=== PATIENT | male | born 1985 | race African-American/Black ===

== ENCOUNTER 2017-01-21 10:22 | Inpatient (IN) | payer MEDICARE, MEDICAID ==
[~2017-01-21] VITALS: Ht 177.8 cm; Wt 95.3 kg
[2017-01-21] MEDS ORDERED: SERT100T PO (10:38)
[2017-01-21] MEDS ORDERED: HYDR-551 PO (10:38)
[2017-01-21] MEDS ORDERED: DIPH50CA37 PO (10:38)
[2017-01-21] MEDS ORDERED: ALBU18HF2 IH (10:38)
[2017-01-21] MEDS ORDERED: TRIM100T PO (10:38)
--- NOTE | 2017-01-21 10:51 | NUR ---
Dr Correa at the bedside for eval and exam.
--- NOTE | 2017-01-21 11:09 | NUR ---
Pt provided father's number, Kris [phone].
--- NOTE | 2017-01-21 11:10 | NUR ---
Pt provided father's phone number. EMELY HORNE called pt's father twice and hung up on, twice. And when ask pt to call his father and speak, pt refused and stated, "I don"t feel like it."
--- NOTE | 2017-01-21 11:16 | NUR ---
Pt is discharge but pt refuses to leave.
--- NOTE | 2017-01-21 11:20 | NUR ---
Pt refuses the leave, security called. but pt is not cooperative and states I don't want to leave.
--- NOTE | 2017-01-21 11:24 | NUR ---
Per security [employer] was called.
--- NOTE | 2017-01-21 12:25 | NUR ---
Patient is resting comfortably in bed with eyes closed, NAD noted. Awaiting [employer] arrival.
--- NOTE | 2017-01-21 12:40 | NUR ---
Pt's primary MD ( LEE ANN) called to notify ER MD that pt is here for medical/psych eval.
[2017-01-21 12:58] LABS: BASOPHILS % (AUTO) 0.6 % (0.0-2.0); EOSINOPHILS # (AUTO) 0.2 K/uL (0.0-0.7); EOSINOPHILS % (AUTO) 4.2 % (0.0-7.0); HEMATOCRIT 38.7 % (40-50); LYMPHOCYTES # (AUTO) 1.7 K/UL (0.8-4.8); LYMPHOCYTES % (AUTO) 34.2 % (20.5-51.5); MEAN CORPUSCULAR HEMOGLOBIN 28.1 UUG (27.0-31.0); MEAN CORPUSCULAR HGB CONC 34 g/dL (32.0-37.0); MONOCYTES # (AUTO) 0.7 K/UL (0.1-1.30); MONOCYTES % (AUTO) 13.7 % (0.0-11.0); NEUTROPHILS # (AUTO) 2.4 K/UL (1.8-8.9); NEUTROPHILS % (AUTO) 47.3 % (38.5-71.5); PLATELET COUNT (AUTO) 251 K/UL (150-450); RED BLOOD CELL COUNT(AUTO) 4.61 MIL/UL (4.7-6.1)
--- NOTE | 2017-01-21 13:00 | NUR ---
Provided lunch, pt ate 100% of tray. No c/o pain.
[2017-01-21 13:05] LABS: CARBON DIOXIDE 29 mmol/L (21-32); CHLORIDE 108 mmol/L (98-107); CREATININE 0.9 mg/dL (0.6-1.3); GLUCOSE 104 mg/dL (74-106); POTASSIUM 4.1 mmol/L (3.5-5.1); UREA NITROGEN, BLOOD 10 mg/dL (7-18)
[2017-01-21 13:10] LABS: *BILIRUBIN,URIN NEGATIVE (NEGATIVE); *BLOOD, URINE 1+ (NEGATIVE); *CLARITY,URINE CLEAR (CLEAR); *COLOR,URINE YELLOW (YELLOW); *KETONES,URINE NEGATIVE (NEGATIVE); *PROTEIN,URINE NEGATIVE (NEGATIVE); *UROBILINOGEN,URINE 0.2 E.U./dl (NORMAL); LEUKOCYTE ESTERASE ,URINE NEGATIVE (NEGATIVE); NITRITE, URINE NEGATIVE (NEGATIVE); UGLUCOSE NEGATIVE (NEGATIVE)
[2017-01-21 13:11] LABS: ETHANOL < 3 MG/DL (0-0)
[2017-01-21 13:12] LABS: *AMPHETAMINE, URINE NEGATIVE (NEGATIVE); *BARBITURATE, URINE NEGATIVE (NEGATIVE); *CANNABINOID, URINE POSITIVE (NEGATIVE); *COCCAINE, URINE NEGATIVE (NEGATIVE); *OPIATE, URINE NEGATIVE (NEGATIVE); *PHENCYCLIDINE SCREEN,URINE NEGATIVE (NEGATIVE)
[2017-01-21 13:18] LABS: THYROID STIMULATING HORMONE 1.319 mIU/mL (0.358-3.740)
[2017-01-21 13:20] LABS: ALANINE AMINOTRANSFERASE 44 U/L (16-63); ALKALINE PHOSPHATASE 73 U/L (50-136); ASPARTATE AMINOTRANSFERASE 28 U/L (15-37); BILIRUBIN,DIRECT 0.1 mg/dL (0.0-0.2); BILIRUBIN,TOTAL 0.2 mg/dL (0.2-1.0); TOTAL PROTEIN, SERUM 6.6 g/dL (6.4-8.2)
[2017-01-21 13:22] LABS: BACTERIA,URINE FEW /HPF (NONE SEEN); SQUAMOUS EPITHELIAL CELL,UR FEW /HPF (NONE SEEN); WBC,URINE NONE SEEN /HPF (0-3)
[2017-01-21] MEDS ORDERED: IV 1/2NS 1000 ML 1,000 ML IV ONE (13:45)
--- NOTE | 2017-01-21 14:20 | NUR ---
[facility]SA collected and sent to lab, belonging list completed.
[2017-01-21] MEDS ORDERED: IV 1/2NS 1000 ML 1,000 ML IV PRN (15:00)
[2017-01-21] MEDS ORDERED: HYDROMORPHONE 1 MG/1 ML DISP.SYRIN IV PRN (15:00)
[2017-01-21] MEDS ORDERED: ONDANSETRON 4 MG/2 ML VIAL IV PRN (15:00)
[2017-01-21] MEDS ORDERED: LORAZEPAM 2 MG/1 ML VIAL IV PRN (15:00)
[2017-01-21] MEDS ORDERED: ALBUTEROL SULFATE 2.5 MG/3 ML NEBU NEB PRN (15:00)
[2017-01-21] MEDS ORDERED: ZOLPIDEM 5 MG TABLET PO PRN (15:00)
[2017-01-21] MEDS ORDERED: ACETAMINOPHEN 325 MG TABLET PO PRN (15:00)
[2017-01-21 15:43] VITALS: BP 123/79
--- NOTE | 2017-01-21 15:50 | NUR ---
PATIENT STATES HE NEEDS TO LEAVE TODAY AND THAT HE IS NOT SPENDING THE NIGHT IN THE HOSPITAL. DR. NANCE NOTIFIED.
--- NOTE | 2017-01-21 16:00 | NUR ---
PATIENT PACING OUTSIDE THE ROOM. INCREASE AGITATION NOTED. STATES HE IS LEAVING NOW. TEACHING DONE REGARDING PATIENT'S DX RISKS EXPLAINED AND PATIENT VOICED UNDERSTANDING.
--- NOTE | 2017-01-21 16:13 | NUR ---
PATIENT LEFT AMA. STATED, " I AM NOT SPENDING THE NIGHT HERE!" IV REMOVED, PRESSURE APPLIED AND HEMOSTASIS ACHIEVED. REFUSED TO SIGN AMA PAPER WORK. DR. NANCE NOTIFIED. PATIENT ACCOMPANIED OUTSIDE THE HOSPITAL BY SECURITY.
[2017-01-21] MEDS ORDERED: DOCUSATE SODIUM 100 MG CAPSULE PO SCH (21:00)
[2017-01-21] MEDS ORDERED: DOCUSATE SODIUM 250 MG CAPSULE PO SCH (21:00)
[2017-01-22] MEDS ORDERED: PANTOPRAZOLE SODIUM 40 MG TABLET.DR PO SCH (07:00)
[2017-01-22] MEDS ORDERED: SERTRALINE HCL 100 MG TABLET PO SCH (09:00)
== END 2017-01-21 16:00 | disposition left against medical advice (07) | DRG 558 ==
LOC: ER 10:22 → MED 14:30
PROVIDERS: ADMIT Internal Medicine; ATTEND Internal Medicine
DX: M62.82 Rhabdomyolysis (principal); E87.0 Hyperosmolality and hypernatremia; E86.0 Dehydration; X30.XXXA Exposure to excessive natural heat, initial encounter; Y93.01 Activity, walking, marching and hiking; Y92.89 Other specified places as the place of occurrence of the external cause; R19.5 Other fecal abnormalities; F31.9 Bipolar disorder, unspecified; J45.909 Unspecified asthma, uncomplicated; Z79.899 Other long term (current) drug therapy; D64.9 Anemia, unspecified; F41.9 Anxiety disorder, unspecified; E66.9 Obesity, unspecified; Z68.30 Body mass index [BMI] 30.0-30.9, adult; M79.672 Pain in left foot; M79.671 Pain in right foot; R73.03 Prediabetes; G62.9 Polyneuropathy, unspecified
CPT/HCPCS: 36415; 71010; 73630; 80307; 84443; 85025; A4663; G0480; J3490